=== PATIENT | male | born 1950 | race Caucasian/White ===

== ENCOUNTER 2020-03-27 08:43 | Emergency (ER) | payer MEDICARE, MEDICAID ==
[~2020-03-27] VITALS: Ht 177.8 cm; Wt 82.0 kg
--- NOTE | 2020-03-27 09:00 | NUR ---
Pt very anxious and rude demanding pain medication. "I need something for pain! I dont need a damn IV! Just give me something by mouth." This RN instructed the pt that we needed an IV for blood work. This RN spoke with Dr. Coats and he gave me verbal order to change Toradol and Morphine administrations to IM.
[2020-03-27] MEDS ORDERED: morphine INJ 10 MG/ML 1ML (SYR OR VIAL) IVP STA (09:12)
[2020-03-27] MEDS ORDERED: ONDANSETRON 4 MG/2 ML (SDV) Z0FRAN IVP ONE (09:15)
[2020-03-27] MEDS ORDERED: NS IV 1000 ML 1,000 ML IV SCH (09:15)
[2020-03-27] MEDS ORDERED: methylPREDNISolone 125 MG (Solu-MEDROL) VIAL IVP ONE (09:15)
[2020-03-27] MEDS ORDERED: KETOROLAC 30 MG/ML VIAL IVP ONE ×2 (09:15→10:30)
[2020-03-27] MEDS ORDERED: RT-ALBUTEROL/IPRATROPIUM 3 ML (DUONEB) VIAL INH ONE (09:15)
--- NOTE | 2020-03-27 09:25 | Diagnostic Imaging Report ---
INDICATION: Chest pain, shortness of breath. Frontal chest obtained at 09:11 a.m. FINDINGS: Heart and mediastinal silhouette are normal in appearance. There is some minimal bibasilar atelectasis. There is no casie consolidation or pneumothorax or pleural fluid. IMPRESSION: Minimal bibasilar atelectasis. Otherwise negative chest. Dictated by: Dictated on workstation # [id number]
--- NOTE | 2020-03-27 09:41 | ED General ---
General Chief Complaint: Chest Pain Stated Complaint: CHEST PAIN History of Present Illness Date Seen by Provider: Mar 27, 2020 Time Seen by Provider: 09:37 Initial Comments Patient presenting to emergency department via EMS for evaluation of right-sided chest pain and shortness of breath. Reportedly this started suddenly at midnight last night and has persisted. He is saying it is sharp and radiates towards his back and makes him feel short of breath but no nausea vomiting or diaphoresis. He denies any history of heart disease or lung disease and takes no medications on a regular basis. He is very annoyed by my questions and is demanding pain medicine so he will take off all his monitors and leave. I do not have a room air oxygen saturation but he is on 10 L nonrebreather mask setting at 100%. He appears uncomfortable but nontoxic with normal vital signs. Allergies and Home Medications Allergies Coded Allergies: Codeine (Verified Allergy, Unknown, U, 11/23/05) Patient Home Medication List Home Medication List Reviewed: Yes Review of Systems Review of Systems Constitutional: no symptoms reported EENTM: no symptoms reported Respiratory: short of breath Cardiovascular: chest pain Gastrointestinal: no symptoms reported Genitourinary: no symptoms reported Musculoskeletal: back pain Skin: no symptoms reported Psychiatric/Neurological: No Symptoms Reported All Other Systems Reviewed Negative Unless Noted: Yes Physical Exam Vital Signs Vital Signs - First Documented 03/27/20 08:45 Temp 37.1 Pulse 98 Resp 24 B/P (MAP) 150/92 (111) Pulse Ox 100 O2 Delivery Non Rebreather O2 Flow Rate 15.0 Capillary Refill : Height, Weight, BMI Height: '" Weight: lbs. oz. kg; BMI Method: General Appearance: No Apparent Distress, WD/WN HEENT: PERRL/EOMI Neck: Normal Inspection Respiratory: Other (decreased aeration of lungs with trace wheezing auscultated) Cardiovascular: Regular Rate, Rhythm Gastrointestinal: Non Tender, Soft Back: Normal Inspection Extremity: Normal Capillary Refill, Normal Inspection, No Pedal Edema Neurologic/Psychiatric: Alert, Oriented x3 Skin: Warm/Dry Focused Exam Lactate Level 03/27/20 10:15: Lactic Acid Level 1.42 Lactic Acid Level Laboratory Tests Test 03/27/20 10:15 Lactic Acid Level 1.42 MMOL/L (0.50-2.00) Progress/Results/Core Measures Suspected Sepsis SIRS Temperature: Pulse: Respiratory Rate: Laboratory Tests 03/27/20 10:38: White Blood Count 15.2H Blood Pressure / Mean: 03/27/20 10:15: Lactic Acid Level 1.42 Laboratory Tests 03/27/20 09:50: Creatinine 0.98, Total Bilirubin 0.5 03/27/20 10:15: INR Comment 0.9 03/27/20 10:38: Platelet Count 323 Results/Orders Lab Results Laboratory Tests Test 03/27/20 09:50 03/27/20 10:15 03/27/20 10:38 Range/Units Blood Gas Puncture Site RT RADIAL Blood Gas Patient Temperature 37.1 Arterial Blood pH 7.45 H 7.37-7.43 Arterial Blood Partial Pressure CO2 37 35-45 MMHG Arterial Blood Partial Pressure O2 65 L 79-93 MMHG Arterial Blood HCO3 26 23-27 MMOL/L Arterial Blood Total CO2 26.8 21.0-31.0 MMOL/L Arterial Blood Oxygen Saturation 93 L 94-100 % Arterial Blood Base Excess 1.8 -2.5-2.5 MMOL/L Aj Test OK Blood Gas Ventilator Setting NO Blood Gas Inspired Oxygen 15 L Sodium Level 135 135-145 MMOL/L Potassium Level 3.9 3.6-5.0 MMOL/L Chloride Level 101 98-107 MMOL/L Carbon Dioxide Level 21 21-32 MMOL/L Anion Gap 13 5-14 MMOL/L Blood Urea Nitrogen 19 H 7-18 MG/DL Creatinine 0.98 0.60-1.30 MG/DL Estimat Glomerular Filtration Rate > 60 BUN/Creatinine Ratio 19 Glucose Level 132 H 70-105 MG/DL Calcium Level 9.6 8.5-10.1 MG/DL Corrected Calcium 9.3 8.5-10.1 MG/DL Magnesium Level 1.8 1.6-2.4 MG/DL Total Bilirubin 0.5 0.1-1.0 MG/DL Aspartate Amino Transf (AST/SGOT) 15 5-34 U/L Alanine Aminotransferase (ALT/SGPT) 13 0-55 U/L Alkaline Phosphatase 81 40-136 U/L Troponin I < 0.30 <0.30 NG/ML Pro-B-Type Natriuretic Peptide 23.9 <75.0 PG/ML Total Protein 8.5 H 6.4-8.2 GM/DL Albumin 4.4 3.2-4.5 GM/DL Lipase 16 8-78 U/L Serum Alcohol < 10 <10 MG/DL Prothrombin Time 12.2 12.2-14.7 SEC INR Comment 0.9 0.8-1.4 Activated Partial Thromboplast Time 25 24-35 SEC D-Dimer 1.26 H 0.00-0.49 UG/ML Lactic Acid Level 1.42 0.50-2.00 MMOL/L White Blood Count 15.2 H 4.3-11.0 10^3/uL Red Blood Count 5.74 4.35-5.85 10^6/uL Hemoglobin 16.7 13.3-17.7 G/DL Hematocrit 49 40-54 % Mean Corpuscular Volume 85 80-99 FL Mean Corpuscular Hemoglobin 29 25-34 PG Mean Corpuscular Hemoglobin Concent 34 32-36 G/DL Red Cell Distribution Width 13.8 10.0-14.5 % Platelet Count 323 130-400 10^3/uL Mean Platelet Volume 9.3 7.4-10.4 FL Neutrophils (%) (Auto) 87 H 42-75 % Lymphocytes (%) (Auto) 6 L 12-44 % Monocytes (%) (Auto) 6 0-12 % Eosinophils (%) (Auto) 0 0-10 % Basophils (%) (Auto) 0 0-10 % Neutrophils # (Auto) 13.3 H 1.8-7.8 X 10^3 Lymphocytes # (Auto) 0.9 L 1.0-4.0 X 10^3 Monocytes # (Auto) 0.9 0.0-1.0 X 10^3 Eosinophils # (Auto) 0.0 0.0-0.3 10^3/uL Basophils # (Auto) 0.0 0.0-0.1 10^3/uL Neutrophils % (Manual) 91 % Lymphocytes % (Manual) 4 % Monocytes % (Manual) 2 % Eosinophils % (Manual) 0 % Basophils % (Manual) 0 % Band Neutrophils 3 % My Orders Orders - LOVELY INGRAM DO Cbc With Automated Diff (03/27/20 08:49) Comprehensive Metabolic Panel (03/27/20 08:49) Lactic Acid Analyzer (03/27/20 08:49) Arterial Blood Gas (03/27/20 08:49) Chest 1 View Ap/Pa Only (03/27/20 08:49) Iv/Invasive Line Insertion .IV start (03/27/20 09:12) Alcohol (03/27/20 09:12) Blood Culture (03/27/20 09:12) Drug Screen Stat (Urine) (03/27/20 09:12) Fibrin Degradation Products (03/27/20 09:12) Lipase (03/27/20 09:12) Magnesium (03/27/20 09:12) Partial Thromboplastin Time (03/27/20 09:12) Probnp Fs (03/27/20 09:12) Protime With Inr (03/27/20 09:12) Troponin I Fs (03/27/20 09:12) Ekg Tracing (03/27/20 09:12) Ns Iv 1000 Ml (Sodium Chloride 0.9%) (03/27/20 09:15) Morphine Injection (Morphine Injection (03/27/20 09:12) Ondansetron Injection (Zofran Injectio (03/27/20 09:15) Ketorolac Injection (Toradol Injection) (03/27/20 09:15) Methylprednisolone Sod Succ (Solu-Medrol (03/27/20 09:15) Albuterol/Ipra Inhalation Soln (Duoneb I (03/27/20 09:15) Svn Small Volume Nebulizer (03/27/20 09:12) Ketorolac Injection (Toradol Injection) (03/27/20 10:30) Hydromorphone Injection (Dilaudid Inject (03/27/20 10:30) Manual Differential (03/27/20 10:38) Ct Angio Chest W (03/27/20 11:06) Iohexol Injection (Omnipaque 350 Mg/Ml 1 (03/27/20 11:15) Received Contrast (Hold Metformin- Contr (03/27/20 11:15) Sodium Chloride Flush (Catheter Flush Sy (03/27/20 11:15) Ns (Ivpb) (Sodium Chloride 0.9% Ivpb Bag (03/27/20 11:15) Medications Given in ED Current Medications Medications Dose Ordered Sig/Kellen Route Start Time Stop Time Status Last Admin Dose Admin Albuterol/ Ipratropium 3 ml ONCE ONCE INH 03/27/20 09:15 03/27/20 09:16 DC 03/27/20 09:40 3 ML Hydromorphone HCl 1 mg ONCE ONCE IVP 03/27/20 10:30 03/27/20 10:31 DC 03/27/20 10:59 1 MG Iohexol 115 ml ONCE ONCE IV 03/27/20 11:15 03/27/20 11:16 DC 03/27/20 11:37 115 ML Ketorolac Tromethamine 15 mg ONCE ONCE IVP 03/27/20 09:15 03/27/20 09:16 DC 03/27/20 09:41 15 MG Ketorolac Tromethamine 15 mg ONCE ONCE IVP 03/27/20 10:30 03/27/20 10:31 DC 03/27/20 10:59 15 MG Methylprednisolone Sodium Succinate 125 mg ONCE ONCE IVP 03/27/20 09:15 03/27/20 09:16 DC 03/27/20 10:58 125 MG Ondansetron HCl 4 mg ONCE ONCE IVP 03/27/20 09:15 03/27/20 09:16 DC 03/27/20 10:58 4 MG Sodium Chloride 10 ml NEEDED PRN IV 03/27/20 11:15 03/27/20 11:38 10 ML Sodium Chloride 100 ml ONCE ONCE IV 03/27/20 11:15 03/27/20 11:16 DC 03/27/20 11:38 100 ML Vital Signs/I&O 03/27/20 03/27/20 08:45 08:45 Temp 37.1 Pulse 98 Resp 24 B/P (MAP) 150/92 (111) Pulse Ox 100 O2 Delivery Non Rebreather Non Rebreather O2 Flow Rate 15.0 Capillary Refill : Progress Note : Progress Note Patient with right-sided chest pain that seems to be pleuritic in nature. I will check labs imaging treat symptoms and reassess. Patient's workup did return abnormal with signs of leukocytosis or leukopenia elevated d-dimer ended up getting a CT scan that showed that he has bilateral pneumonia. His ABG shows that he is hypoxic however after getting a breathing treatment steroids and some medications for pain he said he feels much better and he has an oxygen saturation of 92% on room air. I did recommend admission to the hospital given his presentation abnormal vital signs and abnormal workup and potential for deterioration and that viral COVID pneumonia has not been ruled out and he would need to be admitted for further observation and treatment. Patient refused stating that he has no further pain or difficulty breathing and that he would rather be treated as an outpatient. I again explained why I wanted to keep him in the hospital and he verbalized understanding and accepted the risks of and disability by not being admitted to the hospital. I told her to come back any time if he is feeling worse but otherwise follow with primary care provider within 2-3 days for rechec k. Patient aware and agreeable with plan for discharge and verbalized understanding of the need for short-term follow-up and strict ED return precautions discussed including worsening shortness of breath pain or other general concerns. Departure Impression Primary Impression: Bilateral pneumonia Qualified Codes: J18.9 - Pneumonia, unspecified organism Additional Impressions: Leukocytosis (leucocytosis) Hypoxia Pleuritic chest pain Disposition: HOME, SELF-CARE Condition: Improved Departure-Patient Inst. Patient Instructions: Pneumonia, Adult (DC) Scripts Hydrocodone/Acetaminophen (Hydrocodone-Acetamin 5-325 mg) 1 Each Tablet 1 EACH PO Q6H PRN for PAIN-SEVERE (8-10), #12 TAB Prov: LOVELY INGRAM DO 03/27/20 Prednisone (Prednisone) 20 Mg Tab 40 MG PO DAILY, #8 TAB 0 Refills Prov: LOVELY INGRAM DO 03/27/20 Albuterol Sulfate (PROAIR HFA) 1 Puff Puff 2 PUFF IH Q4H, #1 INHALER 1 PUFF = 90 MCG Prov: LOVELY INGRAM DO 03/27/20 Cefdinir (Cefdinir) 300 Mg Capsule 300 MG PO BID, #14 CAP 0 Refills Prov: LOVELY INGRAM DO 03/27/20 Azithromycin (Zithromax) 250 Mg Tablet 250 MG PO UD, #6 TAB TAKE 2 TABLETS TODAY, THEN TAKE 1 TABLET DAILY FOR 4 MORE DAYS Prov: LOVELY INGRAM DO 03/27/20 LOVELY INGRAM DO Mar 27, 2020 09:41
--- NOTE | 2020-03-27 09:41 | NUR ---
Toradol 15 mg and Morphine 4 mg given in bilateral deltoids.
[2020-03-27] MEDS ORDERED: HYDROmorphone 2 MG/ML VIAL (DILAUDID) IVP ONE (10:30)
[2020-03-27 10:49] LABS: HEMATOCRIT 49 % (40-54); HEMOGLOBIN 16.7 G/DL (13.3-17.7); MEAN CORPUSCULAR HEMOGLOBIN 29 PG (25-34); MEAN CORPUSCULAR HGB CONC 34 G/DL (32-36); MEAN CORPUSCULAR VOLUME 85 FL (80-99); MEAN PLATELET VOLUME 9.3 FL (7.4-10.4); PLATELET COUNT 323 10^3/uL (130-400); RED CELL DISTRIBUTION WIDTH 13.8 % (10.0-14.5); WHITE BLOOD COUNT 15.2 10^3/uL (4.3-11.0)
[2020-03-27 10:50] LABS: BASOPHILS % (AUTO) 0 % (0-10); EOSINOPHILS % (AUTO) 0 % (0-10); LYMPHOCYTES # (AUTO) 0.9 X 10^3 (1.0-4.0); LYMPHOCYTES % (AUTO) 6 % (12-44); MONOCYTES # (AUTO) 0.9 X 10^3 (0.0-1.0); MONOCYTES % (AUTO) 6 % (0-12); NEUTROPHILS # (AUTO) 13.3 X 10^3 (1.8-7.8); NEUTROPHILS % (AUTO) 87 % (42-75)
[2020-03-27 10:52] LABS: FIBRIN DEGRADATION PRODUCTS 1.26 UG/ML (0.00-0.49); INR 0.9 (0.8-1.4); PROTHROMBIN TIME PATIENT 12.2 SEC (12.2-14.7)
[2020-03-27 10:56] LABS: ALANINE AMINOTRANSFERASE 13 U/L (0-55); ALKALINE PHOSPHATASE 81 U/L (40-136); BILIRUBIN,TOTAL 0.5 MG/DL (0.1-1.0); BUN/CREATININE RATIO 19; CALCIUM 9.6 MG/DL (8.5-10.1); CARBON DIOXIDE 21 MMOL/L (21-32); CHLORIDE 101 MMOL/L (98-107); CREATININE SERUM 0.98 MG/DL (0.60-1.30); GFR ESTIMATED > 60; GLUCOSE 132 MG/DL (70-105); MAGNESIUM 1.8 MG/DL (1.6-2.4); POTASSIUM 3.9 MMOL/L (3.6-5.0); SODIUM 135 MMOL/L (135-145)
[2020-03-27 10:57] LABS: ALBUMIN 4.4 GM/DL (3.2-4.5); LIPASE 16 U/L (8-78); TOTAL PROTEIN 8.5 GM/DL (6.4-8.2)
[2020-03-27 11:00] LABS: ABG BASE EXCESS 1.8 MMOL/L (-2.5-2.5); ABG OXYGEN SATURATION 93 % (94-100); ABG PCO2 37 MMHG (35-45); ABG PH 7.45 (7.37-7.43); ABG PO2 65 MMHG (79-93); ABG TCO2 26.8 MMOL/L (21.0-31.0)
[2020-03-27 11:01] LABS: ALLENS TEST OK; INSPIRED O2 15 L; VENTILATOR NO
[2020-03-27 11:02] LABS: PATIENT TEMP 37.1
[2020-03-27] MEDS ORDERED: IOHEXOL 350 MG/ML 150 ML (OMNIPAQUE 350) VIAL IV ONE (11:15)
[2020-03-27] MEDS ORDERED: HOLD METFORMIN - RECEIVED CONTRAST 20 ML VIAL IV SCH (11:15)
[2020-03-27] MEDS ORDERED: NS 100 ML (IVPB) BAG IV ONE (11:15)
[2020-03-27] MEDS ORDERED: CATHETER FLUSH 10 ML SYR IV PRN (11:15)
[2020-03-27 11:27] LABS: BAND NEUTROPHILS 3 %; BASOPHILS % (MANUAL) 0 %; EOSINOPHILS % (MANUAL) 0 %; LYMPHOCYTES % (MANUAL) 4 %; MONOCYTES % (MANUAL) 2 %; NEUTROPHILS % (MANUAL) 91 %
--- NOTE | 2020-03-27 12:00 | NUR ---
Pt states he is feeling much better at this time. "I feel great. Its nice to breathe again. Im sorry about being rude. I was just hurting so bad. He stated. This RN reassured pt that no hard feelings and that I dont blame him.
--- NOTE | 2020-03-27 12:09 | Diagnostic Imaging Report ---
PROCEDURE: CT angiography of the chest with contrast. TECHNIQUE: Multiple contiguous axial images were obtained through the chest after uneventful bolus administration of intravenous contrast. 3D reconstructed CTA MIP acquisitions were also performed. Auto Exposure Controls were utilized during the CT exam to meet ALARA standards for radiation dose reduction. INDICATION: Shortness of breath and right-sided chest pain as well as elevated d-dimer. No prior studies are available for comparison. FINDINGS: Evaluation of the pulmonary arterial system is without evidence of thromboembolism. No definite filling defects are seen within central, lobar or segmental branches. The thoracic aorta is normal caliber. No dissection is seen. There is no pericardial or pleural fluid. Parenchymal evaluation does show some emphysematous changes in both lungs. There is airspace consolidation in bilateral lower lobes suggestive of pneumonia. Upper abdomen is unremarkable. IMPRESSION: 1. No evidence of pulmonary embolism or thoracic aortic dissection. 2. Bilateral lower lobe airspace infiltrates suggestive of pneumonia. Dictated by: Dictated on workstation # [id number]
[2020-03-27] MEDS ORDERED: AZIT250T PO (12:22)
[2020-03-27] MEDS ORDERED: PRD20T PO (12:22)
[2020-03-27] MEDS ORDERED: CEFD300C3 PO (12:22)
[2020-03-27] MEDS ORDERED: HYDR-3812 PO (12:22)
[2020-03-27] MEDS ORDERED: RT-ALBUINH IH (12:22)
[2020-03-27 12:35] VITALS: BP 128/72
--- NOTE | 2020-03-27 12:35 | NUR ---
Pt ambulatory to ED checkout.
== END 2020-03-27 12:35 | disposition home or self-care (01) ==
LOC: EDUNIT# 08:48 → ER FS 08:49
DX: J18.9 Pneumonia, unspecified organism (principal); D72.829 Elevated white blood cell count, unspecified; R09.02 Hypoxemia; R07.81 Pleurodynia; Z88.5 Allergy status to narcotic agent
CPT/HCPCS: 36415; 71045; 71275; 80053; 82805; 83605; 83690; 83735; 83880; 84484; 85007; 85027; 85379; 85610; 85730; 87040; 99285; G0480; 80320